=== PATIENT | male | born 1990 | race Caucasian/White ===

== ENCOUNTER → 2018-12-16 | Outpatient (CLI) | payer OTHER, SELFPAY ==
[2018-12-16 13:48] LABS: Erythrocyte Sedimentation Rate < 1 mm/hr (0-15)
[2018-12-16 13:52] LABS: Absolute Lymphocyte Count 1.94 X10^3/uL (0.83-4.51); Absolute Neutrophil Count 4.4 X10^3/uL (2.0-7.7); Basophil# 0.04 X10^3/uL; Basophil% 0.6 % (0-1); Eosinophil# 0.06 X10^3/uL; Eosinophils% 0.9 % (0-5); Hematocrit 42.4 % (40-54); Hemoglobin 14.5 g/dL (13.0-16.5); Lymphocyte # 1.94 X10^3/ul (4.0); Lymphocyte % 28.2 % (19-41); Mean Corp Hgb Conc 34.2 g/dL (32-36); Mean Corpuscular Hgb 30.5 pg (27.0-32.0); Mean Corpuscular Volume 89.3 fL (80-94); Mean Platelet Vol. 9.9 fl (6.2-12.0); Monocyte# 0.48 X10^3/uL; NRBC Flagged by Analyzer 0 % (0-5); Neutrophil # 4.35 X10^3/uL (2.7-7.7); Platelet Count 240 K/mm3 (150-450); RBC Distribution Width CV 11.8 % (11.6-14.6); RBC Distribution Width SD 37.9 fl (35.1-43.9); Red Blood Count 4.75 M/mm3 (4.6-6.2); White Blood Count 6.9 K/mm3 (4.4-11.0)
[2018-12-16 14:06] LABS: ALB/GLOB Ratio 1.2 RATIO (0.9-2.4); AST(SGOT) 10 U/L (15-37); Alanine Aminotransfer ALT/SGPT 24 U/L (16-61); Albumin, Serum 3.9 g/dL (3.2-5.0); Alkaline Phosphatase 56 U/L (45-117); Anion Gap 8 (5-15); BUN 7 mg/dL (7-18); BUN/Creat Ratio 8.1 RATIO (10-20); Calcium,Total 8.7 mg/dL (8.5-10.1); Chloride 104 mmol/L (98-107); Cholesterol 202 mg/dL (200); Creatinine, Serum 0.86 mg/dL (0.70-1.30); EST Glomerular Filtration Rate 112 mL/min (>60); Est Glom Filt Rate - Afr Amer 135 mL/min (>60); Globulin 3.3 g/dL (2.2-4.2); Glucose 114 mg/dL (74-106); High Density Lipoprotein 50 mg/dL; Lipase 97 U/L (73-393); Potassium 3.5 mmol/L (3.5-5.1); Protein, Total 7.2 g/dL (6.4-8.2); Sodium Level 141 mmol/L (136-145); Triglycerides 178 mg/dL; Very Low Density Lipoprotein 36 mg/dL (5-40)
== END | disposition home or self-care (01) ==
LOC: MTLAB 11:58
PROVIDERS: Family Provider Family Medicine; PCP Family Medicine; Referring Provider Family Medicine; Visit Provider Family Medicine
DX: K29.00 Acute gastritis without bleeding (principal); Z13.220 Encounter for screening for lipoid disorders
CPT/HCPCS: 36415; 80053; 80061; 83690; 85025; 85652

== ENCOUNTER → 2019-07-22 15:47 | Outpatient (CLI) | payer OTHER, SELFPAY ==
[2019-01-22 15:03] VITALS: BMI 30.1
--- NOTE | 2019-07-22 15:53 | RAD_ITS ---
STUDY: X-RAY - RIGHT KNEE REASON FOR EXAM: Male, 28 years old. LATERAL AND POSTERIOR PAIN FOLLOWING INJURY WITH A POPPING SOUND TECHNIQUE: 4 view(s) of the knee. COMPARISON: None. FINDINGS: Normal visualized distal femur. Normal visualized proximal tibia and fibula. Normal proximal tibiofibular articulation. Normal medial femorotibial compartment. Normal lateral femorotibial compartment. Normal patellofemoral articulation. The soft tissue structures are unremarkable. RAD/Knee 4 or More Views IMPRESSION: Normal x-ray examination of the knee. Electronically Signed: Shaan Rae MD at 16:07 EDT , Service support ,
== END ==
PROVIDERS: PCP Family Medicine; Referring Provider Family Medicine; Visit Provider Family Medicine
DX: M25.561 Pain in right knee (principal)
CPT/HCPCS: 73564

== ENCOUNTER → 2020-01-01 | Outpatient (CLI) | payer OTHER, SELFPAY ==
[2019-01-22 15:03] VITALS: BMI 30.1
== END | disposition home or self-care (01) ==
LOC: LABSPEC 14:04
PROVIDERS: PCP Family Medicine; Referring Provider Family Medicine; Visit Provider Family Medicine
DX: U07.1 COVID-19 (principal)
CPT/HCPCS: 87635; U0003

== ENCOUNTER → 2020-01-11 13:36 | Outpatient (CLI) | payer OTHER, SELFPAY ==
[2019-01-22 15:03] VITALS: BMI 30.1
== END ==
PROVIDERS: PCP Family Medicine; Visit Provider Family Medicine
DX: Z20.828 Contact with and (suspected) exposure to other viral communicable diseases (principal)
CPT/HCPCS: 87635; U0003

== ENCOUNTER → 2020-12-07 | Outpatient (CLI) | payer OTHER, SELFPAY | END | disposition home or self-care (01) | PROVIDERS: PCP Family Medicine; Referring Provider Family Medicine; Visit Provider Family Medicine | DX: J02.9 Acute pharyngitis, unspecified (principal) | CPT/HCPCS: 87635; U0005; U0003 ==

== ENCOUNTER 2021-04-19 16:06 | Outpatient (CLI) | payer OTHER, SELFPAY ==
--- NOTE | 2021-04-19 16:15 | RAD_ITS ---
STUDY: XR Shoulder Min 2 Views REASON FOR EXAM: Male, 30 years old. PAIN TECHNIQUE: XR Shoulder Min 2 Views COMPARISON: None. FINDINGS: Normal glenohumeral articulation. Normal acromioclavicular joint. Normal acromion. Normal humeral head and visualized proximal humerus. The soft tissue structures are unremarkable. Normal visualized pulmonary apex. RAD/Shoulder min 2 Views IMPRESSION: There are no acute findings of the shoulder. Electronically Signed: Oliver Serrano MD at 16:30 EST ,
== END 2021-04-19 23:59 | disposition home or self-care (01) ==
PROVIDERS: PCP Family Medicine; Referring Provider Family Medicine; Visit Provider Family Medicine
DX: M25.512 Pain in left shoulder (principal)
CPT/HCPCS: 73030

== ENCOUNTER 2022-04-15 19:24 | Emergency (ER) | payer OTHER, SELFPAY ==
[2022-04-15 19:25] VITALS: BP 165/104; PULSE 72; RESP 16; TEMP 36.4; O2SAT 99; BMI 33.3
[2022-04-15 19:34] VITALS: BP 145/89; PULSE 74; RESP 16; O2SAT 98
--- NOTE | 2022-04-15 19:51 | EKG12_ITS ---
Test Reason : CP Blood Pressure : / mmHG Vent. Rate : 076 BPM Atrial Rate : 076 BPM P-R Int : 138 ms QRS Dur : 098 ms QT Int : 362 ms P-R-T Axes : 053 030 029 degrees QTc Int : 407 ms Normal sinus rhythm with sinus arrhythmia Normal ECG Confirmed by DEBBIE LYNNE, MIKEY ([id number]), photography editor MORIAH HERNANDEZ ([id number]) on 04/17/2022 9:46:11 AM Referred By: ALEC Confirmed By:MIKEY LEWIS MD
--- NOTE | 2022-04-15 19:54 | EX.ED.DYSGE1 ---
HPI <ENMANUEL Barrera - Last Filed: 04/15/22 21:16> History of Present Illness Chief Complaint: Chest Pain Narrative Narrative: 31-year-old male with history of IBS, GERD who presents to the emergency department with complaints of midsternal chest pain, radiation to his left arm, left side of his neck, as well as nausea. Patient states that this happened at approximately 1 PM today, he was just sitting on the couch. Patient states that it was consistent, he then went and took a shower, continued to not feel well, did have some nausea. Patient has family history of heart disease and he is concerned. He denies any recent trips, history of blood clots in his leg or lung. Patient denies any recent cough or infectious-like symptoms PFSH <ENMANUEL Barrera - Last Filed: 04/15/22 21:16> [facility] Medical History (Updated 04/15/22 @ 21:16 by ENMANUEL Barrera) No acute medical problems Home Medications NK 04/15/22 [History Last Taken Unknown] Allergy/AdvReac Type Severity Reaction Status Date / Time No Known Allergies Allergy Verified 04/15/22 19:30 Social History (Updated 01/22/19 @ 15:10 by Momo HOLLIS, PA) Smoking Status: Never smoker Smokeless tobacco user: chewing tobacco alcohol intake: current alcohol intake frequency: other Alcohol type: beer ROS <ENMANUEL Barrera - Last Filed: 04/15/22 21:16> ROS ED ROS Narrative Constitutional: Negative for fever, chills, weight loss, weakness Eyes: Negative for vision loss, vision change, double vision ENT: Negative for any sore throat, ear pain, congestion Cardiovascular: Negative for any tightness, palpitations. Positive for chest pain Respiratory: Negative for any cough, sputum production, hemoptysis, dyspnea, dyspnea on exertion, orthopnea Gastrointestinal: Negative for any abdominal pain, vomiting, diarrhea, constipation, blood in stool, blood in vomit. Positive for nausea : Negative for any urinary frequency, dysuria, retention, blood in urine Muscle skeletal: Negative for any muscle joint pain, stiffness, myalgias, arthralgias, neck pain, back pain Neurological: Negative for any headache, syncope, numbness or dizziness. Positive for tingling to the left arm Skin: Negative for any rashes, lumps, itching, abrasions, lacerations Psychiatric: Negative for any depression, anxiety, stress, suicidal ideation, homicidal ideation Hematologic: Negative for any easy bruising, excessive bruising, easy bleeding Allergies: Negative for any eczema, hives, rash EXAM <ENMANUEL Barrera - Last Filed: 04/15/22 21:16> Physical Exam Narrative Exam Narrative: Vital signs reviewed. HEET: Head normocephalic atraumatic, TMs clear bilaterally. Posterior pharynx is clear, moist mucous membranes. Nares clear bilaterally. Neck: Supple with no lymphadenopathy or tenderness. No signs of meningismus, negative jolt sign. Cardiac: Regular rate and rhythm no murmurs gallops or rubs, equal peripheral pulses bilaterally. Respiratory: Lungs clear to auscultation bilaterally. No chest tenderness. Abdomen: Soft, nontender, nondistended. No abdominal bruit or pulsatile masses. No hepatosplenomegaly Extremities: No peripheral edema, no signs of gross trauma or deformity. Active full range of motion of all extremities. Neuro: Cranial nerves II through XII intact, no focal neurological deficits. Skin: Clean dry and intact with no rash, purpura, petechiae, vesicles or pustules. Backs/flank: No CVA tenderness, no midline spinal tenderness, no deformity. Psych: Normal mood and affect. No SI, HI or acute psychosis. Const Vital Signs: 04/15/22 19:25 04/15/22 19:32 04/15/22 19:34 Temperature 97.6 F L Temperature Source Temporal Pulse Rate 72 74 Respiratory Rate 16 16 Respiratory Effort Normal Non-Labored Blood Pressure 165/104 H 145/89 H Blood Pressure Mean 124 107 Pulse Ox 99 98 Oxygen Delivery Method Room Air Room Air 04/15/22 20:51 04/15/22 21:27 04/15/22 22:32 Temperature Temperature Source Pulse Rate 61 61 64 Respiratory Rate 17 22 H 15 Respiratory Effort Blood Pressure 147/87 H 143/93 H 139/75 H Blood Pressure Mean 107 109 96 Pulse Ox 97 96 96 Oxygen Delivery Method Room Air Room Air Room Air <Dr. Mo Tapia DO - Last Filed: 04/15/22 22:46> Physical Exam Const Vital Signs: 04/15/22 19:25 04/15/22 19:32 04/15/22 19:34 Temperature 97.6 F L Temperature Source Temporal Pulse Rate 72 74 Respiratory Rate 16 16 Respiratory Effort Normal Non-Labored Blood Pressure 165/104 H 145/89 H Blood Pressure Mean 124 107 Pulse Ox 99 98 Oxygen Delivery Method Room Air Room Air 04/15/22 20:51 04/15/22 21:27 04/15/22 22:32 Temperature Temperature Source Pulse Rate 61 61 64 Respiratory Rate 17 22 H 15 Respiratory Effort Blood Pressure 147/87 H 143/93 H 139/75 H Blood Pressure Mean 107 109 96 Pulse Ox 97 96 96 Oxygen Delivery Method Room Air Room Air Room Air MDM <ENMANUEL Barrera - Last Filed: 04/15/22 21:16> MDM Lab Data Labs: Laboratory Results - last 24 hr 04/15/22 04/15/22 04/15/22 19:33 19:33 21:45 WBC 10.8 RBC 4.74 Hgb 14.6 Hct 42.4 MCV 89.5 MCH 30.8 MCHC 34.4 RDW Std Deviation 38.7 RDW Coeff of Paulo 11.9 Plt Count 268 MPV 9.9 Immature Gran % (Auto) 0.300 Neut % (Auto) 57.2 Lymph % (Auto) 31.4 Plumas % (Auto) 8.9 Eos % (Auto) 1.7 Baso % (Auto) 0.5 Absolute Neuts (auto) 6.2 Absolute Lymphs (auto) 3.39 Nucleated RBC % 0 Sodium 142 Potassium 3.8 Chloride 105 Carbon Dioxide 27.0 Anion Gap 10 BUN 12 Creatinine 0.92 Estim Creat Clear Calc 112.55 Est GFR (MDRD) Af Amer 122 Est GFR (MDRD) Non-Af 101 BUN/Creatinine Ratio 13.0 Glucose 137 H Calcium 9.0 Total Bilirubin 0.60 AST 25 ALT 33 Alkaline Phosphatase 52 Troponin I High Sens 4 5 Total Protein 7.2 Albumin 3.9 Globulin 3.3 Albumin/Globulin Ratio 1.2 Lipase 111 Radiography Diagnostic Testing: Clinical Impression(s) from Imaging Studies Chest X-Ray 04/15/22 20:37 IMPRESSION: No acute cardiopulmonary disease. Electronically Signed: Jacob Hunt DO at 21:04 EST Reading Location ID and State: [address] [place] [address] Tel [phone], Service support , EKG Normal sinus rhythm: Attestation: I personally reviewed and interpreted this EKG as follows: Comments: Normal sinus rhythm with sinus arrhythmia, rate of 76 bpm, TX interval 138 ms, QRS duration 98 ms, no acute ST elevation, no acute infarct noted. Treatment and Re-Evaluation Narrative: All radiologic examinations were read, reviewed by the emergency department attending. From these reads, a plan of care will be put in place. Patient appears well, patient appears nontoxic, vital signs are stable. Patient presents to the emergency department with complaints of midsternal chest pain that radiates to the left arm. Secondary the patient's history of cardiac involvement, I did perform a full cardiac work-up.Was underPatient did receive a two-view chest x-ray, this was grossly unremarkable for any acute process. Patient's EKG markable. Laboratory studies showed a normal CBC, patient's chemistries were unremarkable, patient had 2 negative high-sensitivity troponins. At this time, there is no evidence to suspect any ACS, PR. No evidence suspect any infectious process such as pneumonia. Patient does have some discomfort on palpation to his anterior chest. Consider chest wall strain. Patient also states that he feels very anxious sometimes when he feels things he has never felt before. At this time, has no have suspect any cardiac involvement. Patient was diagnosed with chest pain uncertain etiology as well as chest wall strain. He will follow-up closely with his PCP. Both him and his were given discharge instruction as well as return precautions. Stable for discharge. <Dr. Mo Tapia, DO - Last Filed: 04/15/22 22:46> MDM MDM Narrative Medical decision making narrative: Interventions / MDM: Differential diagnosis: ACS, chest pain Diagnosis considered but do not suspect: Pneumothorax however normal lung sounds and chest x-ray. Pulmonary embolism however PE RC criteria negative. My EKG interpretation: Normal sinus rhythm with sinus arrhythmia, rate of 76 bpm, TX interval 138 ms, QRS duration 98 ms, no acute ST elevation, no acute infarct noted. 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 I perform my own [id number] evaluation. I agree with the plan of work-up. Persistent chest pain heaviness from 1 PM waxing and waning. No cough. Grandfather with PR at the age of 24, 27 and 29. Father with no PR history. No recent travel or surgeries. No history of PE or DVT. Heart lungs are normal. EKG cardiac work-up negative. PE RC criteria negative. Symptom-free on reevaluation. Outpatient follow-up for stress testing return precaution discussed. All questions were answered. Re-evaluation: stable Disposition discussed with patient/family/significant other: Patient and significant other Case discussed with consulting clinician: N/A Lab Data Attestation: I reviewed the patient's lab results. Labs: Laboratory Results - last 24 hr 04/15/22 04/15/22 04/15/22 19:33 19:33 21:45 WBC 10.8 RBC 4.74 Hgb 14.6 Hct 42.4 MCV 89.5 MCH 30.8 MCHC 34.4 RDW Std Deviation 38.7 RDW Coeff of Paulo 11.9 Plt Count 268 MPV 9.9 Immature Gran % (Auto) 0.300 Neut % (Auto) 57.2 Lymph % (Auto) 31.4 Plumas % (Auto) 8.9 Eos % (Auto) 1.7 Baso % (Auto) 0.5 Absolute Neuts (auto) 6.2 Absolute Lymphs (auto) 3.39 Nucleated RBC % 0 Sodium 142 Potassium 3.8 Chloride 105 Carbon Dioxide 27.0 Anion Gap 10 BUN 12 Creatinine 0.92 Estim Creat Clear Calc 112.55 Est GFR (MDRD) Af Amer 122 Est GFR (MDRD) Non-Af 101 BUN/Creatinine Ratio 13.0 Glucose 137 H Calcium 9.0 Total Bilirubin 0.60 AST 25 ALT 33 Alkaline Phosphatase 52 Troponin I High Sens 4 5 Total Protein 7.2 Albumin 3.9 Globulin 3.3 Albumin/Globulin Ratio 1.2 Lipase 111 Radiography Diagnostic Testing: Clinical Impression(s) from Imaging Studies Chest X-Ray 04/15/22 20:37 IMPRESSION: No acute cardiopulmonary disease. Electronically Signed: Jacob Hunt DO at 21:04 EST Reading Location ID and State: [address] [place] [address] Tel [phone], Service support , Discharge Plan Triage Chief Complaint: Chest Pain ED Midlevel Provider: Sagar Epperson ED Provider: Mo Tapia Dx/Rx/DC Orders Clinical Impression: Chest pain of unknown etiology, Chest wall muscle strain Instructions: ED Chest Pain, Uncertain Cause, ED Chest Wall Strain Prescriptions: No Action NK Stand Alone Forms: Work / School Excuse Primary Care Provider: Feliciano Osborne Referrals: Feliciano Osborne MD [Primary Care Provider] - Activity Restrictions/Additional Instructions: Please follow-up outpatient. Disposition Disposition: Home, Self Care
[2022-04-15] MEDS: 0.9% Normal Saline 1,000 ML 1000 ML IV (20:02)
[2022-04-15 20:06] LABS: Absolute Lymphocyte Count 3.39 X10^3/uL (0.83-4.51); Absolute Neutrophil Count 6.2 X10^3/uL (2.0-7.7); Basophil# 0.05 X10^3/uL; Basophil% 0.5 % (0-1); Eosinophil# 0.18 X10^3/uL; Eosinophils% 1.7 % (0-5); Hematocrit 42.4 % (40-54); Hemoglobin 14.6 g/dL (13.0-16.5); Lymphocyte # 3.39 X10^3/ul (0.83-4.51); Lymphocyte % 31.4 % (19-41); Mean Corp Hgb Conc 34.4 g/dL (32-36); Mean Corpuscular Hgb 30.8 pg (27.0-32.0); Mean Corpuscular Volume 89.5 fL (80-94); Mean Platelet Vol. 9.9 fl (6.2-12.0); Monocyte# 0.96 X10^3/uL; Monocyte% 8.9 % (0-10); NRBC Flagged by Analyzer 0 % (0-5); Neutrophil % 57.2 % (47-70); Platelet Count 268 K/mm3 (150-450); RBC Distribution Width CV 11.9 % (11.6-14.6); RBC Distribution Width SD 38.7 fl (35.1-43.9); Red Blood Count 4.74 M/mm3 (4.6-6.2); White Blood Count 10.8 K/mm3 (4.4-11.0)
[2022-04-15 20:19] LABS: ALB/GLOB Ratio 1.2 RATIO (0.9-2.4); AST(SGOT) 25 U/L (15-37); Alanine Aminotransfer ALT/SGPT 33 U/L (16-61); Albumin, Serum 3.9 g/dL (3.2-5.0); Alkaline Phosphatase 52 U/L (45-117); Anion Gap 10 (5-15); BUN 12 mg/dL (7-18); Chloride 105 mmol/L (98-107); Creatinine, Serum 0.92 mg/dL (0.70-1.30); EST Glomerular Filtration Rate 101 mL/min (>60); Est Glom Filt Rate - Afr Amer 122 mL/min (>60); Estimated Creatinine Clearance 112.55 ml/min; Globulin 3.3 g/dL (2.2-4.2); Glucose 137 mg/dL (74-106); Lipase 111 U/L (73-393); Potassium 3.8 mmol/L (3.5-5.1); Protein, Total 7.2 g/dL (6.4-8.2); Sodium Level 142 mmol/L (136-145); Troponin-I HS 4 pg/mL (3.0-78.0)
--- NOTE | 2022-04-15 20:37 | RAD_ITS ---
STUDY: X-RAY CHEST REASON FOR EXAM: Male, 31 years old. Sternal pain beginning approximately 1300 hours. Pain radiates to left arm. Nausea. TECHNIQUE: PA and lateral views of the chest. COMPARISON: None. FINDINGS: The lungs are clear and expanded. There is no demonstrated pleural abnormality. Normal size heart. Normal mediastinum and aziza. Normal visualized pulmonary arteries. Normal visualized aortic arch and descending thoracic aorta. Normal visualized thoracic spine. Normal visualized ribs, clavicles, and shoulders. There is no demonstrated abnormality of the visualized soft tissue structures of the upper abdomen. RAD/Chest PA and Lateral IMPRESSION: No acute cardiopulmonary disease. Electronically Signed: Jacob Hunt DO at 21:04 EST ,
[2022-04-15 20:51] VITALS: BP 147/87; PULSE 61; RESP 17; O2SAT 97
[2022-04-15 21:27] VITALS: BP 143/93; PULSE 61; RESP 22; O2SAT 96
[2022-04-15 22:24] LABS: Troponin-I HS 5 pg/mL (3.0-78.0)
[2022-04-15 22:32] VITALS: BP 139/75; PULSE 64; RESP 15; O2SAT 96
[2022-04-15 22:43] VITALS: BP 139/75; PULSE 71; RESP 25; O2SAT 98
== END 2022-04-15 22:49 | disposition home or self-care (01) ==
PROVIDERS: Nurse Practitioner; Emergency Provider Emergency Medicine; PCP Family Medicine; Visit Provider Emergency Medicine
DX: R07.9 Chest pain, unspecified (principal); F17.220 Nicotine dependence, chewing tobacco, uncomplicated; S29.019A Strain of muscle and tendon of unspecified wall of thorax, initial encounter; X58.XXXA Exposure to other specified factors, initial encounter
CPT/HCPCS: 71046; 80053; 83690; 84484; 85025; 93005; 96360; 96361; 99284; J7030; A4216; J2405

== ENCOUNTER → 2022-04-17 | Outpatient (CLI) | payer OTHER, SELFPAY ==
[2022-04-17 16:24] LABS: BNP,B-Type NATRIURETIC PEPTIDE 11.3 pg/mL (0-100)
[2022-04-17 16:50] LABS: Cholesterol 221 mg/dL (200); High Density Lipoprotein 61 mg/dL; Triglycerides 137 mg/dL; Very Low Density Lipoprotein 27 mg/dL (5-40)
== END | disposition home or self-care (01) ==
LOC: MFPLAB 11:40
PROVIDERS: PCP Family Medicine; Referring Provider Family Medicine; Visit Provider Family Medicine
DX: R07.9 Chest pain, unspecified (principal)
CPT/HCPCS: 36415; 80061; 83880; 84443

== ENCOUNTER → 2022-04-17 | Outpatient (CLI) | payer OTHER, SELFPAY ==
--- NOTE | 2022-04-17 12:11 | CT_ITS ---
STUDY: CTA CHEST REASON FOR EXAM: Male, 31 years old. DYSPNEA ON EFFORT RADIATION DOSAGE (If Supplied By Facility): CTDIvol = ( 12.44 ) mGy, DLP = ( 448.81 ) mGycm TECHNIQUE: The examination was performed with the intravenous administration of IV 100mL Isovue-370. Post-processing of the angiographic images was performed, with multiplanar reformation and 3D reconstruction. Individualized dose optimization techniques were used for this CT. COMPARISON: None. FINDINGS: Normal enhancement of the main pulmonary artery and right and left pulmonary arteries. Normal enhancement of the bilateral peripheral pulmonary arteries. There is no demonstrated pulmonary embolism. Normal thoracic aorta and visualized great vessels. There is no demonstrated aortic dissection. Normal heart and pericardium. Normal mediastinum. Normal hilar regions. Normal visualized trachea and bronchi. The lungs are well expanded. Normal pulmonary parenchyma. Normal pleura. Normal chest wall structures. Normal osseous structures. Normal visualized upper abdomen. CT/CTA Chest W/WO Contrast IMPRESSION: Normal CTA chest examination, without a demonstrated pulmonary embolism or arterial dissection. Electronically Signed: Jake Fitch MD at 12:52 EST ,
== END | disposition home or self-care (01) ==
PROVIDERS: PCP Family Medicine; Referring Provider Family Medicine; Visit Provider Family Medicine
DX: R06.09 Other forms of dyspnea (principal)
CPT/HCPCS: 71275; Q9967

== ENCOUNTER → 2022-04-25 | Outpatient (CLI) | payer OTHER, SELFPAY ==
--- NOTE | 2022-04-25 13:49 | ECHOD_ITS ---
Reason For Study: DYSPNEA Procedure This was a 2D Doppler, Color Flow transthoracic echocardiogram. The exam was of adequate technical quality. Exam performed in department. Left Ventricle Normal LV size. Left ventricular systolic function is normal. The estimated ejection fraction is 65 %. No evidence for diastolic dysfunction. No regional wall motion abnormalities noted. Right Ventricle Normal RV size. Normal systolic function. Atria Normal left atrium. Normal right atrium. No doppler evidence for ASD. Mitral Valve There is no mitral annular calcification. Normal mitral valve. Trivial mitral valve insufficiency. Tricuspid Valve Normal tricuspid valve. Trivial tricuspid valve insufficiency. Unable to estimate RV systolic pressure due to insufficient tricuspid regurgitant envelope. Aortic Valve Trisinus/trileaflet aortic valve. Normal aortic valve. Pulmonic Valve The pulmonic valve is not well visualized. Great Vessels Normal sized aortic root. Pericardium/Pleural No pericardial effusion. MMode/2D Measurements & Calculations LVIDd: 4.8 cm IVSd: 1.0 cm LVOT diam: 1.9 cm LVIDs: 3.1 cm LVPWd: 0.88 cm LVOT area: 2.8 cm2 RVDd: 3.7 cm FS: 34.6 % Ao root diam: 3.1 cm LAV(MOD-bp): 37.6 ml LVAd ap4: 31.5 cm2 LAV(MOD-bp) Indexed: 18.0 ml/m2 LVLd ap4: 8.5 cm LAV(MOD-sp2): 30.1 ml EDV(MOD-sp4): 95.4 ml LAV(MOD-sp4): 37.5 ml EDV(sp4-el): 99.4 ml LVAs ap4: 15.1 cm2 LVLs ap4: 6.6 cm ESV(MOD-sp4): 29.1 ml ESV(sp4-el): 29.3 ml EF(MOD-sp4): 69.5 % EF(sp4-el): 70.5 % LVAd ap2: 26.2 cm2 SV(MOD-sp4): 66.3 ml SV(MOD-sp2): 51.8 ml LVLd ap2: 7.8 cm EDV(MOD-sp2): 74.7 ml EDV(sp2-el): 74.8 ml LVAs ap2: 12.9 cm2 LVLs ap2: 6.3 cm ESV(MOD-sp2): 23.0 ml ESV(sp2-el): 22.4 ml EF(MOD-sp2): 69.3 % SV(sp4-el): 70.1 ml LA dimension(2D): 3.5 cm LA A4 area: 17.2 cm2 RA A4 area: 12.0 cm2 Time Measurements MV dec time: 0.18 sec Doppler Measurements & Calculations MV E max darell: 98.9 cm/sec Lat Peak E' Darell: 18.4 cm/sec Med Peak E' Darell: 12.9 cm/sec MV A max darell: 63.9 cm/sec E/E' lat: 5.4 E/E' med: 7.7 MV E/A: 1.5 Ao V2 max: 147.1 cm/sec LV V1 max: 124.7 cm/sec MV dec slope: 539.8 cm/sec2 Ao max P.6 mmHg LV V1 max P.2 mmHg Ao V2 mean: 100.1 cm/sec LV V1 mean P.4 mmHg Ao mean P.6 mmHg LV V1 mean: 87.4 cm/sec Ao V2 VTI: 28.2 cm LV V1 VTI: 23.3 cm AV (velocity ratio): 0.83 PORSHA(I,D): 2.3 cm2 PORSHA(V,D): 2.4 cm2 SV(LVOT): 65.7 ml PA V2 max: 122.0 cm/sec PA max PG (full): 3.2 mmHg ECHO/Echo Complete Interpretation Summary Left ventricular systolic function is normal. The estimated ejection fraction is 65 %. Trivial mitral valve insufficiency. Trivial tricuspid valve insufficiency. Unable to estimate RV systolic pressure due to insufficient tricuspid regurgita nt envelope. No evidence for diastolic dysfunction. Ordering Physician: Feliciano Osborne Referring Physician: Feliciano Osborne Performed By: Leonie Mullins
== END | disposition home or self-care (01) ==
PROVIDERS: PCP Family Medicine; Referring Provider Family Medicine; Visit Provider Family Medicine
DX: R06.09 Other forms of dyspnea (principal)
CPT/HCPCS: 93306

== ENCOUNTER → 2022-05-07 | Outpatient (CLI) | payer OTHER, SELFPAY ==
--- NOTE | 2022-05-07 13:06 | STRESSREP ---
Stress Test Report Exercise stress test. 31-year-old man with a history of chest pain Stress protocol: Resting EKG demonstrates normal sinus rhythm with a rate of 74 bpm resting blood pressure is 138/90 mmHg. The patient exercised according to the regular Stanton protocol for a total duration of 9 minutes and 45 seconds, completing 45 seconds into stage IV of the Stanton protocol and attaining a maximum heart rate of 181 bpm which was 95% of maximum predicted heart rate; the maximum workload was 12.5 metabolic equivalents. At rest there were no ST or T wave changes noted to suggest ischemia and at peak exercise upsloping ST changes only were noted which did not meet the criteria for ischemia. No clinical angina was noted the test was terminated due to the target heart rate being achieved/fatigue. The peak blood pressure was 200/72 mmHg. Rate-pressure product was 30,100. Conclusion: Exercise stress test with no EKG criteria for ischemia at a high workload No clinical symptoms noted.
== END | disposition home or self-care (01) ==
LOC: CVS 09:52
PROVIDERS: PCP Family Medicine; Visit Provider Family Medicine
DX: R06.09 Other forms of dyspnea (principal)
CPT/HCPCS: 93017

== ENCOUNTER → 2022-05-31 | Outpatient (CLI) | payer OTHER, SELFPAY | END | disposition home or self-care (01) | LOC: LABSPEC 15:21 | PROVIDERS: PCP Family Medicine; Referring Provider Family Medicine; Visit Provider Family Medicine | DX: J02.9 Acute pharyngitis, unspecified (principal) | CPT/HCPCS: 87070 ==

== ENCOUNTER → 2022-11-14 | Outpatient (CLI) | payer OTHER, SELFPAY ==
[2022-11-14 09:05] LABS: Anion Gap 5 (5-15); BUN 10 mg/dL (7-18); BUN/Creat Ratio 11.1 RATIO (10-20); Calcium,Total 8.9 mg/dL (8.5-10.1); Chloride 107 mmol/L (98-107); Cholesterol 197 mg/dL (200); EST Glomerular Filtration Rate 104 mL/min (>60); Est Glom Filt Rate - Afr Amer 126 mL/min (>60); Glucose 92 mg/dL (74-106); High Density Lipoprotein 60 mg/dL; Potassium 3.7 mmol/L (3.5-5.1); Sodium Level 140 mmol/L (136-145); Triglycerides 146 mg/dL; Very Low Density Lipoprotein 29 mg/dL (5-40)
== END | disposition home or self-care (01) ==
LOC: LAB 06:58
PROVIDERS: PCP Family Medicine; Referring Provider Family Medicine; Visit Provider Family Medicine
DX: I10 Essential (primary) hypertension (principal)
CPT/HCPCS: 36415; 80048; 80061